=== PATIENT | male | born 2000 | race Hispanic/Latino ===

== ENCOUNTER 2025-01-29 04:55 | Emergency (ER) | payer SELFPAY ==
[2025-01-29 04:56] VITALS: BP 167/85; PULSE 112; RESP 18; TEMP 36.6; O2SAT 99
--- NOTE | 2025-01-29 05:23 | EDS_ITS ---
HPI History of Present Illness Chief Complaint: Anxiety Informant: patient and spouse/S.O. Narrative Narrative: Patient is a 24-year-old male with no significant past medical history. He states that he and his spouse are moving from [place] to [place]. He reports that he has been driving throughout the day and he has had multiple energy drinks. He states that in the last hour or so he has been having sensation of heart racing/palpitations with shakiness. He states that there is been no illicit drug use and denies any other potential medication or ingestion other than the energy drinks. He states he is unsure if he is having a reaction to the drinks or potential anxiety attack and therefore comes in for evaluation [facility] Medical History no medical history no medical history Allergy/AdvReac Type Severity Reaction Status Date / Time No Known Allergies Allergy Verified 01/29/25 05:10 Family History no significant family his Surgical History no surgical history Social History Smoking Status: Current every day smoker tobacco type: e-cigarettes ROS ROS ED Constitutional Constitutional ED: Denies chills or fever(s) Eyes Eyes: Denies blurry vision or change in vision ENT ENT ED: Denies sore throat Cardiovascular Cardiovascular: Reports palpitations and racing heartbeat; Denies chest pain Respiratory/Chest Respiratory/Chest: Denies cough or dyspnea Gastrointestinal Gastrointestinal: Denies abdominal pain, diarrhea, nausea or vomiting Genitourinary Genitourinary ED: Denies dysuria Musculoskeletal Musculoskeletal: Denies myalgias Integumentary Denies rash Neurologic Neurologic: Denies headache(s) Psychiatric Psychiatric: Reports anxiety Hematologic/Lymphatic Hematologic/Lymphatic: Denies easy bleeding or easy bruising EXAM Physical Exam Const Vital Signs: 01/29/25 04:56 01/29/25 05:02 Temperature 97.8 F Temperature Source Oral Pulse Rate 112 H Respiratory Rate 18 Respiratory Effort Normal Non-Labored Respiratory Pattern Normal Blood Pressure 167/85 H Blood Pressure Mean 112 Pulse Ox 99 Oxygen Delivery Method Room Air Positive well nourished and well developed General Appearance ED: well developed; Negative for pallor HEENT HEENT Narrative: Normocephalic atraumatic Eyes PERRL and EOMs intact bilaterally General Eye ED: Negative for scleral icterus Neck supple Chest Wall palpation of chest normal Resp normal respiratory effort and clear to auscultation bilaterally Cardio regular rhythm Rate: tachycardic and other Other Details: Tachycardic rate with regular rhythm No murmurs rubs or gallops Radial and carotid pulses are equal and symmetric No ectopic beats noted No carotid bruit Extremity normal to inspection Extremity Narrative: No asymmetric edema no pitting edema negative Homans' sign bilaterally Neuro oriented x3, CN's II-XII intact bilaterally and no sensory deficits noted Sensorium / Orientation: alert Motor Exam: strength 5/5 throughout Psych Mood & Affect: anxious Skin no rashes or lesions noted and no wounds General Skin Exam: Negative for jaundice or pallor MDM MDM MDM Narrative Medical decision making narrative: Patient presented to the ER mildly hypertensive and tachycardic. However he does admit to multiple energy drinks throughout the last few hours. In order to ensure that he is not having an abnormal cardiac rhythm such as SVT A-fib or a flutter as the cause of his symptoms that elect to perform an EKG. however as the patient is denying any illicit drug use or homicidal or suicidal ideation I do not feel the need for further testing or psychiatric evaluation. Also as he does not have chest discomfort or leg pain or pleuritic chest pain I have low concern for PE despite his report of excessive travel. The patient was given oral Ativan as his history and exam is most consistent with adverse caffeine reaction and anxiety exacerbation. After receiving the medication he did report feeling better and there was mild improvement of his vital sign. His EKG did not reveal any cardiac dysrhythmia or ischemia. Therefore I do not feel there is need for further intervention as his symptoms appear to be medication induced. He was advised to reduce the amount of caffeine and energy drinks he consumes on a daily basis based on tonight's event but as symptoms are improving and his EKG does not reveal ischemia or dysrhythmia he is otherwise safe for discharge History & Record Review Discussion w/independent historian: Patient and Significant other Discharge Plan Triage Chief Complaint: Anxiety ED Provider: Mark Anthony Kearney Dx/Rx/DC Orders Clinical Impression: Anxiety reaction, Caffeine adverse reaction, Palpitations Instructions: Your Body's Response to Anxiety, ED Anxiety Reaction Primary Care Provider: Care Physician,No Primary Referrals: Bahman Gaitan MD [Med Staff - Active Staff] - Care Physician,No Primary [Primary Care Provider] - Activity Restrictions/Additional Instructions: Your history and exam is consistent with breakthrough anxiety secondary to increased caffeine and stimulants from the recurrent energy drinks today. Your EKG shows no sign of abnormal heart rhythm or heart damage. Please reduce your energy drink use to prevent reoccurrence of symptoms. If they do recur you can take 2 [id number] Benadryl at the same time and place yourself in a quiet dark room to help and reduce symptoms. If symptoms are persistent despite taking the [id number] medication and reducing your stimulant use please return to the ER for repeat evaluation Print Language: Armenian Disposition Disposition: Home, Self Care
--- NOTE | 2025-01-29 05:23 | EKG12_ITS ---
Test Reason : TACHYCARDIA Blood Pressure : */* mmHG Vent. Rate : 87 BPM Atrial Rate : 87 BPM P-R Int : 142 ms QRS Dur : 110 ms QT Int : 352 ms P-R-T Axes : 68 4 50 degrees QTcB Int : 423 ms Normal sinus rhythm Normal ECG Confirmed by TIMOTHY MAURICE, ASHLEY ([id number]), development editor JONNY FREITAS ([id number]) on 01/31/2025 6:40:31 AM Referred By: Confirmed By: ASHLEY AGUIRRE MD
--- NOTE | 2025-01-29 05:30 | PCA ---
NO OLD EKG
[2025-01-29 06:08] VITALS: BP 122/74; PULSE 91; RESP 18; TEMP 36.6; O2SAT 98
== END 2025-01-29 06:11 | disposition home or self-care (01) ==
PROVIDERS: Emergency Provider Emergency Medicine; Visit Provider Emergency Medicine
DX: R00.2 Palpitations (principal); T43.615A Adverse effect of caffeine, initial encounter; F41.9 Anxiety disorder, unspecified; F17.210 Nicotine dependence, cigarettes, uncomplicated
CPT/HCPCS: 93005; 99283